=== PATIENT | male | born 1950 | race Caucasian/White ===

== ENCOUNTER 2021-01-01 07:11 | Day surgery (SDC) | payer OTHER, SELFPAY ==
[~2021-01-01] VITALS: Ht 165.1 cm; Wt 69.4 kg
[~2021-01-01 07:11] MED LIST: CEFAZOLIN SOD 1 GM in D5W 50 ML IV ONE
[2021-01-01] MEDS ORDERED: ACETAMINOPHEN I.V. 1000 MG 100 ML IV ONE (08:22)
[2021-01-01] MEDS ORDERED: POLYMYXIN 500,000/BACIT.10,000 UNITS in NS IRR 1 L IR ONE (08:23)
[2021-01-01] MEDS ORDERED: hydrALAZINE HCL 20 MG/ML VIAL IVP PRN (08:45)
[2021-01-01] MEDS ORDERED: MIDAZOLAM HCL 2 MG/2 ML VIAL (VERSED) IVP PRN (08:45)
[2021-01-01] MEDS ORDERED: ONDANSETRON HCL 4 MG/2 ML VIAL IVP PRN (08:45)
[2021-01-01] MEDS ORDERED: MEPERIDINE HCL/PF 25 MG/ML DISP.SYRIN IVP PRN (08:45)
[2021-01-01] MEDS ORDERED: LABETALOL 100 MG/ 20ML VIAL IVP PRN (08:45)
[2021-01-01] MEDS ORDERED: LR 1,000 ML IV SCH (08:45)
[2021-01-01] MEDS ORDERED: HYDROmorphone 1 MG/ML INJ. CARTRIDGE IVP PRN ×3 (08:45→09:45)
[2021-01-01] MEDS ORDERED: D5/0.45 NS 1,000 ML IV SCH (09:45)
[2021-01-01] MEDS ORDERED: HYDROcodone/ACETAMIN 5-325 MG TAB (NORCO/ VICODIN) PO PRN ×2 (09:45)
[2021-01-01] MEDS ORDERED: fentaNYL CITRATE/PF 100 MCG/2 ML AMP ONE (09:51)
[2021-01-01] MEDS ORDERED: fentaNYL CITRATE 250 MCG/5 ML AMP IV ONE (09:51)
[2021-01-01] MEDS ORDERED: PROPOFOL 200MG/ 20ML VIAL (DIPRIVAN) IV ONE (09:51)
[2021-01-01] MEDS ORDERED: MIDAZOLAM HCL 5 MG/ML VIAL (VERSED) IV ONE (09:51)
[2021-01-01] MEDS ORDERED: ONDANSETRON HCL 4 MG/2 ML VIAL ONE (09:51)
[2021-01-01] MEDS ORDERED: BUPIVACAINE /PF 0.25% 30 ML VIAL INJ ONE (09:51)
[2021-01-01] MEDS ORDERED: MIDAZOLAM HCL 2 MG/2 ML VIAL (VERSED) IVP ONE (09:51)
[2021-01-01] MEDS ORDERED: SEVOFLURANE 15 MIN GAS INH ONE (09:51)
[2021-01-01] MEDS ORDERED: LR 1,000 ML IV.SOLN IV ONE (09:51)
[2021-01-01 13:23] VITALS: BP_SYST 156
== END 2021-01-01 12:10 | disposition home or self-care (01) ==
LOC: SDS 07:11 → SMU 07:14 → SDS 12:10
PROVIDERS: ATTEND Colon & Rectal Surgery
DX: K40.30 Unilateral inguinal hernia, with obstruction, without gangrene, not specified as recurrent (principal); D17.6 Benign lipomatous neoplasm of spermatic cord; I12.9 Hypertensive chronic kidney disease with stage 1 through stage 4 chronic kidney disease, or unspecified chronic kidney disease; E11.22 Type 2 diabetes mellitus with diabetic chronic kidney disease; N18.9 Chronic kidney disease, unspecified; I25.10 Atherosclerotic heart disease of native coronary artery without angina pectoris; Z95.1 Presence of aortocoronary bypass graft; Z79.899 Other long term (current) drug therapy; Z20.822 Contact with and (suspected) exposure to COVID-19
CPT/HCPCS: 49507; 82962; C1781; J0131; J0690; J7060; U0003; J2250; J2405; J2704; J3010; J3490; J7120